=== PATIENT | female | born 1980 | race African-American/Black ===

== ENCOUNTER 2022-06-12 03:51 | Day surgery (SDC) | payer OTHER ==
[2022-06-10 10:46] VITALS: BMI 29.7
[~2022-06-12 03:51] MED LIST: ALBUMIN HUMAN 5% 500 ML IV SOLUTION IV ONE
[2022-06-12] MEDS ORDERED: DEXMEDETOMIDINE HCL 200 MCG/2 ML IVPB ONE (07:54)
[2022-06-12] MEDS ORDERED: ACETAMINOPHEN INJECTION 100 ML IVPB ONE (07:54)
[2022-06-12] MEDS ORDERED: KETAMINE HCL 500 MG/10 ML VIAL ONE (08:01)
[2022-06-12] MEDS ORDERED: PROPOFOL 40 ML ONE (08:01)
[2022-06-12] MEDS ORDERED: BUPIVACAINE LIPOSOME/PF (EXPAREL) 266 MG/20 ML VIAL ONE (08:15)
[2022-06-12] MEDS ORDERED: BUPIVACAINE HCL/PF 0.5% (5MG/ML) 10 ML VIAL ONE (08:15)
[2022-06-12] MEDS ORDERED: MIDAZOLAM HCL 2 MG/2 ML SINGLE DOSE VIAL ONE (08:19)
[2022-06-12] MEDS ORDERED: ALBUMIN HUMAN 5% 500 ML IV SOLUTION IV ONE (08:30)
[2022-06-12] MEDS ORDERED: HYDROmorphone HCl 2 MG/ML VIAL ONE (08:32)
[2022-06-12] MEDS ORDERED: ROCURONIUM BROMIDE 50 MG/5 ML SYRINGE ONE (08:35)
[2022-06-12] MEDS ORDERED: ceFAZolin SODIUM 1 GM VIAL IVPB ONE (08:46)
[2022-06-12] MEDS ORDERED: NEOSTIGMINE METHYLSULFATE 0.5 MG/1 ML - 10 ML MDV ONE (10:00)
[2022-06-12] MEDS ORDERED: GLYCOPYRROLATE 0.2 MG/1 ML VIAL ONE (10:00)
[2022-06-12] MEDS ORDERED: KETOROLAC TROMETHAMINE 30 MG/1 ML VIAL ONE (10:06)
[2022-06-12] MEDS ORDERED: IBUPROFEN 600 MG TABLET (FP) PO PRN (10:29)
[2022-06-12] MEDS ORDERED: oxyCODONE HCL 5 MG TABLET PO PRN (10:29)
[2022-06-12] MEDS ORDERED: ACETAMINOPHEN 325 MG TABLET (FP) PO PRN (10:29)
[2022-06-12] MEDS ORDERED: IBUPROFEN 800 MG/8 ML IJ IVPB PRN (11:10)
[2022-06-12] MEDS ORDERED: HYDROmorphone HCL CARPU-JECT 2 MG/1 ML DISP.SYRIN IVPB PRN (11:11)
[2022-06-12] MEDS: ACETAMINOPHEN 1000 MG/100 ML BAG IVPB SCH ×3 (11:30→23:02)
[2022-06-12] MEDS: LACTATED RINGERS SOLUTION 1,000 ML IV SCH ×2 (12:00→13:09)
[2022-06-12] MEDS ORDERED: ONDANSETRON 4 MG/2 ML VIAL IVPB PRN (12:00)
[2022-06-12] MEDS ORDERED: HYDROmorphone HCl 2 MG/ML VIAL IVPB PRN (13:38)
[2022-06-12 13:56] VITALS: RESP 18
[2022-06-12] MEDS: oxyCODONE HCL 5 MG TABLET PO PRN (16:00)
[2022-06-13] MEDS: ACETAMINOPHEN 1000 MG/100 ML BAG IVPB SCH ×3 (05:32→11:19)
[2022-06-13 06:44] LABS: HEMATOCRIT 24.8 % (32.4-45.2); HEMOGLOBIN 7.7 GM/dL (10.7-15.3); MCHC 31.1 g/dl (32.0-36.0); MEAN CELL VOLUME 63.6 fl (80-96); MEAN PLT VOLUME 9.1 fl (7.5-11.1); PLATELET COUNT 248 10^3/uL (134-434); RBC 3.91 M/mm3 (3.60-5.2); RDW 23.2 % (11.6-15.6); WHITE BLOOD COUNT 9.1 K/mm3 (4.0-10.0)
[2022-06-13 07:09] LABS: MCH 19.8 pg (25.7-33.7)
[2022-06-13 09:07] VITALS: BP 126/77; PULSE 106; TEMP 99
[2022-06-13] MEDS: LACTATED RINGERS SOLUTION 1,000 ML IV SCH (10:05)
[2022-06-13 11:13] LABS: ANISOCYTOSIS 0; MACROCYTOSIS 0
[2022-06-13] MEDS: oxyCODONE HCL 5 MG TABLET PO PRN (11:16)
== END 2022-06-13 13:40 | disposition home or self-care (01) ==
LOC: JASUSAT 03:51 → EDSTATUS 08:00 → J3W 13:28 → JASUSAT 06-13 13:40
PROVIDERS: ATTEND Obstetrics & Gynecology
PROC: 0UB90ZZ Excision of Uterus, Open Approach (ICD-10-PCS; principal; 2022-06-12 08:00)
DX: D25.1 Intramural leiomyoma of uterus (principal); D25.0 Submucous leiomyoma of uterus; D25.2 Subserosal leiomyoma of uterus
CPT/HCPCS: 36415; 85025; 86850; 86900; 86901; 86922; 88305-TC; 94010; 94760